=== PATIENT | female | born 1985 | race Caucasian/White ===

== ENCOUNTER 2017-04-06 03:47 | Inpatient (IN) | payer SELFPAY ==
[~2017-04-06] VITALS: Ht 160 cm; Wt 57.6 kg
[2017-04-06] MEDS ORDERED: LACTATED RINGERS 1,000 ML IV SCH (04:17)
[2017-04-06] MEDS ORDERED: DEXT 5%/LR + PITOCIN 20UNITS/L 1,000 ML IV SCH ×2 (04:17→05:49)
[2017-04-06] MEDS ORDERED: METHYLERGONOVINE MALEATE 0.2 MG/ML IM PRN (04:30)
[2017-04-06] MEDS ORDERED: BUTORPHANOL TARTRATE 2 MG/ML VIAL IV PRN (04:30)
[2017-04-06] MEDS ORDERED: CARBOPROST TROMETHAMINE 250 MCG/ML AMPUL IM PRN (04:30)
[2017-04-06] MEDS ORDERED: LIDOCAINE HCL 1% 20ML VIAL (Pyxis) INJ INFIL SCH (04:30)
[2017-04-06] MEDS ORDERED: MISOPROSTOL 100MCG TABLET VG SCH (04:30)
[2017-04-06] MEDS ORDERED: NALOXONE HCL 0.4 MG/ML 1ML VIAL IM PRN (04:30)
[2017-04-06] MEDS ORDERED: PENICILLIN G POTASSIUM 5 MMU in DEXT 5% WATER 100 ML IV NR (05:00)
[2017-04-06] MEDS ORDERED: GLYCERIN/WITCH HAZEL LEAF MEDICATED PAD TOP PRN (06:00)
[2017-04-06] MEDS ORDERED: HEMORRHOIDAL SUPP PR PRN (06:00)
[2017-04-06] MEDS ORDERED: ACETAMINOPHEN WITH CODEINE 300/30MG TABLET PO PRN ×2 (06:00)
[2017-04-06] MEDS ORDERED: BISACODYL 10MG SUPP PR PRN (06:00)
[2017-04-06 06:16] LABS: BASOPHILS % 0.3 % (0.0-2.0); EOSINOPHILS % 0.5 % (0.0-5.0); HEMATOCRIT. 31.5 % (36.0-48.0); HEMOGLOBIN. 10.3 g/dL (12.0-16.0); LYMPHOCYTES % 15.7 % (20.0-50.0); MEAN CORPUSCULAR HEMOGLOBIN 25.1 pg (28.0-32.0); MEAN CORPUSCULAR VOLUME 77.1 fL (81.0-99.0); MEAN PLATELET VOLUME 9.1 fl (7.4-10.4); MONOCYTES % 5.5 % (2.0-8.0); PLATELET 167 x1000/uL (130-400); RED BLOOD CELL COUNT 4.09 mill/uL (4.2-5.4)
[2017-04-06 06:32] LABS: CARBON DIOXIDE 27 mEq/L (21-32); CHLORIDE 106 mEq/L (98-107)
[2017-04-06 06:43] LABS: CLARITY URINE CLOUDY (CLEAR); COLOR URINE YELLOW (YELLOW); GLUCOSE URINE NEGATIVE (NEGATIVE); KETONES URINE NEGATIVE (NEGATIVE); LEUKOCYTE ESTERASE URINE 1+ (NEGATIVE); NITRITE URINE NEGATIVE (NEGATIVE); OCCULT BLOOD URINE NEGATIVE (NEGATIVE); PH URINE 5.5 (4.5-8.0); PROTEIN URINE NEGATIVE (NEGATIVE); SPECIFIC GRAVITY URINE 1.025 (1.005-1.030); UROBILINOGEN URINE 0.2 E.U./dL (0.2-1.0)
[2017-04-06 06:52] LABS: INR 0.9; PARTIAL THROMBOPLASTIN TIME 27.6 sec (24.0-34.0); PROTHROMBIN TIME 9.9 sec
[2017-04-06 07:17] LABS: *BARBITURATES SCREEN URINE NEGATIVE (NEGATIVE); *BENZODIAZEPINES SCREEN URINE NEGATIVE (NEGATIVE); *COCAINE SCREEN URINE NEGATIVE (NEGATIVE); METHADONE URINE SCREEN NEGATIVE (NEGATIVE); OPIATES URINE SCREEN NEGATIVE (NEGATIVE); PHENCYCLIDINE URINE SCREEN NEGATIVE (NEGATIVE)
[2017-04-06 07:20] LABS: *AMPHETAMINES SCREEN URINE PRESUMTIVE POSITIVE (NEGATIVE); CANNABINOID URINE SCREEN PRESUMTIVE POSITIVE (NEGATIVE)
[2017-04-06 08:13] LABS: HEPATITIS B SURFACE ANTIGEN NEGATIVE; RUBELLA IGG 67.8 IU/mL (4.99-10)
[2017-04-06] MEDS: PRENATAL VIT/FE FUMARATE/FA TABLET PO SCH (09:00)
[2017-04-06] MEDS ORDERED: PENICILLIN G POTASSIUM 2.5 MMU in DEXTROSE 5% WATER 50 ML IV SCH (09:00)
[2017-04-06 11:36] VITALS: BP 110/76
[2017-04-06] MEDS: SIMETHICONE 80MG TABLET CHEW PO SCH ×4 (13:00→22:47)
[2017-04-06 15:43] VITALS: BP 111/73
[2017-04-06 19:15] VITALS: BP 105/70
[2017-04-06] MEDS: DOCUSATE SODIUM 100MG CAPSULE PO SCH (22:46)
[2017-04-06] MEDS: IBUPROFEN 400MG TABLET PO PRN (22:47)
[2017-04-06 23:45] VITALS: BP 114/75
[2017-04-07 06:28] LABS: BASOPHILS % 0.5 % (0.0-2.0); EOSINOPHILS % 1.8 % (0.0-5.0); HEMATOCRIT. 28.7 % (36.0-48.0); HEMOGLOBIN. 9.3 g/dL (12.0-16.0); LYMPHOCYTES % 24.7 % (20.0-50.0); MEAN CORPUSCULAR HEMOGLOBIN 24.9 pg (28.0-32.0); MEAN CORPUSCULAR VOLUME 76.9 fL (81.0-99.0); MONOCYTES % 5.2 % (2.0-8.0); NEUTROPHILS % 67.8 % (40.0-76.0); PLATELET 161 x1000/uL (130-400); RED BLOOD CELL COUNT 3.74 mill/uL (4.2-5.4); RED CELL DISTRIBUTION WIDTH 17.4 % (11.6-14.6)
[2017-04-07 08:00] VITALS: BP 99/54
[2017-04-07] MEDS: SIMETHICONE 80MG TABLET CHEW PO SCH ×4 (13:00→21:04)
[2017-04-07 15:20] VITALS: BP 101/56
[2017-04-07] MEDS: FERROUS SULFATE 325MG TABLET PO SCH ×2 (17:00→17:30)
[2017-04-07] MEDS: IBUPROFEN 400MG TABLET PO PRN (17:30)
[2017-04-07] MEDS: PRENATAL VIT/FE FUMARATE/FA TABLET PO SCH (17:30)
[2017-04-07 19:40] VITALS: BP 121/81
[2017-04-07] MEDS: DOCUSATE SODIUM 100MG CAPSULE PO SCH (21:03)
[2017-04-08 03:33] VITALS: BP 115/79
[2017-04-08 07:47] VITALS: BP 116/67
[2017-04-08] MEDS: SIMETHICONE 80MG TABLET CHEW PO SCH (08:31)
[2017-04-08] MEDS: IBUPROFEN 400MG TABLET PO PRN (08:31)
[2017-04-08] MEDS: PRENATAL VIT/FE FUMARATE/FA TABLET PO SCH (08:31)
[2017-04-08] MEDS: FERROUS SULFATE 325MG TABLET PO SCH (08:31)
== END 2017-04-08 12:15 | disposition home or self-care (01) | DRG 560 ==
LOC: L&D 03:47 → OBSVTOIN 03:47 → 7EST PP/OB 12:31
PROVIDERS: ADMIT Obstetrics & Gynecology; ATTEND Obstetrics & Gynecology
PROC: 10E0XZZ Delivery of Products of Conception, External Approach (ICD-10-PCS; principal; 2017-04-06 05:02)
DX: O77.0 Labor and delivery complicated by meconium in amniotic fluid (principal); O99.324 Drug use complicating childbirth; F15.90 Other stimulant use, unspecified, uncomplicated; O48.0 Post-term pregnancy; Z37.0 Single live birth; Z3A.36 36 weeks gestation of pregnancy
CPT/HCPCS: 36415; 80053; 80305; 80307; 80349; 80359; 81001; 84550; 85025; 85384; 85610; 85730; 86592; 86703; 86762; 86850; 86900; 87340; J2540; J2590; J7060; J7120